=== PATIENT | male | born 1950 | race Caucasian/White ===

== ENCOUNTER → 2021-01-21 | Outpatient (CLI) | payer MEDICARE, OTHER ==
[~2021-01-21] MED LIST: DIATRIZOATE MEGL/DIATRIZOA SOD 30 ML BTL PO ONE
== END ==
LOC: CT 17:17
PROVIDERS: ATTEND Family Medicine
DX: R10.814 Left lower quadrant abdominal tenderness (principal)
CPT/HCPCS: 74176

== ENCOUNTER 2023-03-15 12:03 | Inpatient (IN) | payer MEDICARE, OTHER ==
[~2023-03-15] VITALS: Ht 177.8 cm; Wt 63.5 kg
[2023-03-15] MEDS ORDERED: ALBUTEROL/IPRATROPIUM 3 ML NEB NEB ONE (13:00)
[2023-03-15 13:23] LABS: BASOPHILS % 0.2 % (0.0-1.0); EOSINOPHILS % 0.2 % (0.0-6.0); HEMATOCRIT 30.9 % (38.2-49.6); LYMPHOCYTES # (AUTO) 0.4 (1.0-3.2); MEAN CORPUSCULAR HEMOGLOBIN 33.8 pg (28-32); MEAN CORPUSCULAR HGB CONC 32.4 g/dL (31-35); MEAN CORPUSCULAR VOLUME 104.4 fL (81-99); MONOCYTES # (AUTO) 0.2 (0.2-0.8); MONOCYTES % 4.6 % (4.4-11.3); NEUTROPHILS # (AUTO) 4.1 (2.1-6.9); NEUTROPHILS % 86.4 % (38.7-80.0); PLATELET COUNT 139 x10e3/uL (140-360); RED BLOOD COUNT 2.96 x10e6/uL (4.3-5.7); RED CELL DISTRIBUTION WIDTH 14.9 % (11.7-14.4)
[2023-03-15 13:46] LABS: ALBUMIN 3.1 g/dL (3.5-5.0); ALBUMIN/GLOBULIN RATIO 1.1 (0.8-2.0); ANION GAP 14.2 mmol/L (8-16); CALCIUM 8.9 mg/dL (8.4-10.2); CREATININE, SERUM 2.54 mg/dL (0.72-1.25); POTASSIUM 4.2 mmol/L (3.5-5.1)
[2023-03-15 13:52] LABS: CREATINE KINASE MB 2.9 ng/mL (0-5.0)
[2023-03-15] MEDS: SODIUM CHLORIDE 0.9% 1000ML 1,000 ML IV SCH ×2 (15:43→23:33)
[2023-03-15 15:47] LABS: CLARITY,URINE CLEAR (CLEAR); COLOR,URINE YELLOW (YELLOW)
[2023-03-15 15:48] LABS: KETONES,URINE NEGATIVE (NEGATIVE); LEUKOCYTE ESTERASE ,URINE NEGATIVE (NEGATIVE); NITRITE,URINE NEGATIVE (NEGATIVE); PROTEIN,URINE DIPSTICK >=300 (NEGATIVE); URINE UROBILINOGEN 0.2 mg/dL (0.2 - 1)
[2023-03-15 15:52] LABS: BACTERIA,URINE FEW /HPF; EPITHELIAL CELLS,URINE FEW /LPF; RBC,URINE 0-5 /HPF (0-5); WBC,URINE (MAN) 0-5 /HPF (0-5)
[2023-03-15] MEDS ORDERED: DILTIAZEM HCL ER 120 MG CAP PO SCH (17:00)
[2023-03-15] MEDS ORDERED: SIMETHICONE 80 MG CHEW PO PRN (20:45)
[2023-03-15] MEDS ORDERED: ACETAMINOPHEN 325 MG TAB PO PRN (20:45)
[2023-03-15] MEDS ORDERED: DOCUSATE SODIUM 100 MG CAP PO PRN (20:45)
[2023-03-15] MEDS: GUAIFENESIN/DEXTROMETHORPHAN LIQD 5 ML UDC NG PRN (21:32)
[2023-03-15] MEDS: BENZONATATE 100 MG CAP PO PRN (21:33)
[2023-03-15] MEDS: LORATADINE 10 MG TAB PO SCH (21:33)
[2023-03-15] MEDS: ZINC SULFATE 50 MG CAP PO SCH (21:33)
[2023-03-15] MEDS: FAMOTIDINE 20 MG TAB PO SCH (21:33)
[2023-03-15 22:29] VITALS: BP 180/75
[2023-03-15] MEDS ORDERED: TRAZODONE HCL50 MG PO (23:02)
[2023-03-15] MEDS ORDERED: AMOX TR-K CLV1 EAC1 PO (23:02)
[2023-03-15] MEDS ORDERED: ZOLPIDEM TARTRAT5 MG PO (23:02)
[2023-03-15] MEDS ORDERED: BENZONATATE200 MG PO (23:02)
[2023-03-15] MEDS ORDERED: LEVOFLOXACIN500 MG PO (23:02)
[2023-03-15] MEDS ORDERED: ALPRAZOLAM0.25 MG PO (23:02)
[2023-03-15] MEDS: ALBUTEROL/IPRATROPIUM 3 ML NEB NEB PRN (23:10)
[2023-03-15] MEDS: Morphine 2mg Syringe 2 MG/ML SYR IV PRN (23:30)
[2023-03-15] MEDS: ONDANSETRON HCL INJ 2MG/ML 2ML 2 MG/ML VIAL IV PRN (23:30)
[2023-03-16] VITALS (10 sets, daily range): BP systolic 110–180; BP diastolic 59–76
[2023-03-16 00:25] LABS: CREATINE KINASE MB 3.5 ng/mL (0-5.0)
[2023-03-16] MEDS: GUAIFENESIN/DEXTROMETHORPHAN LIQD 5 ML UDC NG PRN ×2 (03:12→17:59)
[2023-03-16] MEDS: ONDANSETRON HCL INJ 2MG/ML 2ML 2 MG/ML VIAL IV PRN (03:12)
[2023-03-16] MEDS: Morphine 2mg Syringe 2 MG/ML SYR IV PRN (03:13)
[2023-03-16] MEDS: BENZONATATE 100 MG CAP PO PRN ×2 (03:13→17:58)
[2023-03-16] MEDS: SODIUM CHLORIDE 0.9% 1000ML 1,000 ML IV SCH ×2 (05:48→15:47)
[2023-03-16 05:52] LABS: HEMATOCRIT 28.3 % (38.2-49.6); LYMPHOCYTES # (AUTO) 0.6 (1.0-3.2); LYMPHOCYTES % 17.6 % (18.0-39.1); MEAN CORPUSCULAR HGB CONC 31.8 g/dL (31-35); MEAN CORPUSCULAR VOLUME 106.8 fL (81-99); MONOCYTES # (AUTO) 0.2 (0.2-0.8); MONOCYTES % 6.1 % (4.4-11.3); NEUTROPHILS # (AUTO) 2.5 (2.1-6.9); NEUTROPHILS % 75.7 % (38.7-80.0); PLATELET COUNT 124 x10e3/uL (140-360); RED BLOOD COUNT 2.65 x10e6/uL (4.3-5.7); RED CELL DISTRIBUTION WIDTH 14.7 % (11.7-14.4)
[2023-03-16 06:29] LABS: ANION GAP 10.2 mmol/L (8-16); CALCIUM 8.3 mg/dL (8.4-10.2); CREATININE, SERUM 2.37 mg/dL (0.72-1.25); POTASSIUM 5.2 mmol/L (3.5-5.1)
[2023-03-16] MEDS: ALBUTEROL/IPRATROPIUM 3 ML NEB NEB PRN ×3 (06:30→20:00)
[2023-03-16 06:42] LABS: MAGNESIUM 1.9 MG/DL (1.3-2.1)
[2023-03-16] MEDS ORDERED: DEXTROSE 50% SYRINGE 50 ML IV PRN (06:45)
[2023-03-16 06:54] LABS: CREATINE KINASE MB 2.4 ng/mL (0-5.0)
[2023-03-16] MEDS: INSULIN REGULAR, HUMAN 100 UNIT/1 ML SQ SCH ×4 (06:57→21:00)
[2023-03-16 07:11] LABS: CHOL/HDL RATIO 6.3 (3.9-4.7)
[2023-03-16] MEDS: FAMOTIDINE 20 MG TAB PO SCH (09:04)
[2023-03-16] MEDS: LORATADINE 10 MG TAB PO SCH (09:04)
[2023-03-16] MEDS: ZINC SULFATE 50 MG CAP PO SCH (09:04)
[2023-03-16] MEDS: CHOLECALCIFEROL 400 UNIT TAB PO SCH (09:04)
[2023-03-16] MEDS: ASCORBIC ACID 500 MG TAB PO SCH ×2 (09:05→17:47)
[2023-03-16] MEDS: METOPROLOL TARTRATE 25 MG TAB PO SCH ×2 (12:38→17:47)
[2023-03-16] MEDS: INSULIN GLARGINE 100 UNITS/ML VIAL SQ SCH (12:49)
[2023-03-16] MEDS: IPRATROPIUM BROMIDE 0.02% 2.5 ML NEB NEB SCH (13:37)
[2023-03-16 15:17] LABS: CREATINE KINASE MB 2.4 ng/mL (0-5.0)
[2023-03-16] MEDS: DEXAMETHASONE SOD PHOS INJ 4 MG/ML SDV IV SCH (20:45)
[2023-03-16] MEDS ORDERED: ASCORBIC ACID 500 MG TAB PO SCH (21:00)
[2023-03-16] MEDS ORDERED: SODIUM CHLORIDE 0.9% 250ML 250 ML ONE (22:06)
[2023-03-17] VITALS (8 sets, daily range): BP systolic 136–169; BP diastolic 64–79
[2023-03-17] MEDS: SODIUM CHLORIDE 0.9% 1000ML 1,000 ML IV SCH ×3 (05:47→16:46)
[2023-03-17 06:23] LABS: BASOPHILS % 0.2 % (0.0-1.0); EOSINOPHILS # (AUTO) 0.1 (0.0-0.4); EOSINOPHILS % 2.5 % (0.0-6.0); HEMOGLOBIN 9.2 g/dL (14.0-18.0); LYMPHOCYTES # (AUTO) 0.7 (1.0-3.2); LYMPHOCYTES % 13.9 % (18.0-39.1); MEAN CORPUSCULAR HEMOGLOBIN 33.5 pg (28-32); MEAN CORPUSCULAR HGB CONC 31.7 g/dL (31-35); MEAN CORPUSCULAR VOLUME 105.5 fL (81-99); MONOCYTES # (AUTO) 0.3 (0.2-0.8); MONOCYTES % 6.1 % (4.4-11.3); NEUTROPHILS # (AUTO) 3.9 (2.1-6.9); NEUTROPHILS % 76.7 % (38.7-80.0); PLATELET COUNT 124 x10e3/uL (140-360); RED BLOOD COUNT 2.75 x10e6/uL (4.3-5.7); RED CELL DISTRIBUTION WIDTH 15.1 % (11.7-14.4)
[2023-03-17 06:33] LABS: CALCIUM 8.4 mg/dL (8.4-10.2); CREATININE, SERUM 2.24 mg/dL (0.72-1.25); MAGNESIUM 1.8 MG/DL (1.3-2.1); PHOSPHORUS 3.3 MG/DL (2.3-4.7)
[2023-03-17] MEDS: BUDESONIDE 0.5MG/2 ML NEB INH SCH ×2 (07:55→19:42)
[2023-03-17] MEDS: IPRATROPIUM BROMIDE 0.02% 2.5 ML NEB NEB SCH ×3 (07:55→19:25)
[2023-03-17] MEDS: LEVALBUTEROL HCL SOLN NEBU 1.25 MG/3 ML NEB INH SCH ×3 (07:55→19:25)
[2023-03-17] MEDS ORDERED: ZINC SULFATE 50 MG CAP PO SCH (09:00)
[2023-03-17] MEDS: LORATADINE 10 MG TAB PO SCH (09:20)
[2023-03-17] MEDS: DEXAMETHASONE SOD PHOS INJ 4 MG/ML SDV IV SCH (09:20)
[2023-03-17] MEDS: FAMOTIDINE 20 MG TAB PO SCH (09:21)
[2023-03-17] MEDS: CHOLECALCIFEROL 400 UNIT TAB PO SCH (09:21)
[2023-03-17] MEDS: METOPROLOL TARTRATE 25 MG TAB PO SCH ×2 (09:21→16:47)
[2023-03-17] MEDS: INSULIN GLARGINE 100 UNITS/ML VIAL SQ SCH (09:25)
[2023-03-17] MEDS: INSULIN REGULAR, HUMAN 100 UNIT/1 ML SQ SCH ×4 (09:27→21:07)
[2023-03-17] MEDS: ZINC SULFATE 50 MG CAP PO SCH (09:33)
[2023-03-17] MEDS: ASCORBIC ACID 500 MG TAB PO SCH ×2 (09:33→16:46)
[2023-03-17] MEDS: BENZONATATE 100 MG CAP PO PRN (09:33)
[2023-03-17] MEDS: CLOPIDOGREL BISULFATE 75 MG TAB PO SCH (11:42)
[2023-03-17] MEDS: HEPARIN SOD (PORCINE) 5,000 UNIT/ML VIAL SC SCH ×2 (11:43→21:00)
[2023-03-17] MEDS: BALSAM PERU/CASTOR OIL 60 GM OINT...G. TP SCH (11:44)
[2023-03-17] MEDS: TAMSULOSIN HCL 0.4 MG CAP PO SCH (21:03)
[2023-03-17] MEDS: CLONIDINE HCL 0.1 MG TAB PO SCH (21:03)
[2023-03-17] MEDS: ATORVASTATIN 40 MG TAB PO SCH (21:04)
[2023-03-17] MEDS ORDERED: SODIUM CHLORIDE 0.9% 250ML 0 ML ONE (23:21)
[2023-03-18] VITALS (8 sets, daily range): BP systolic 127–168; BP diastolic 55–90
[2023-03-18] MEDS: LEVALBUTEROL HCL SOLN NEBU 1.25 MG/3 ML NEB INH SCH ×4 (01:10→19:40)
[2023-03-18] MEDS: SODIUM CHLORIDE 0.9% 1000ML 1,000 ML IV SCH ×2 (05:33→12:45)
[2023-03-18 06:25] LABS: EOSINOPHILS % 0.3 % (0.0-6.0); HEMATOCRIT 27.7 % (38.2-49.6); HEMOGLOBIN 8.9 g/dL (14.0-18.0); LYMPHOCYTES # (AUTO) 0.3 (1.0-3.2); LYMPHOCYTES % 9.2 % (18.0-39.1); MEAN CORPUSCULAR HEMOGLOBIN 33.5 pg (28-32); MEAN CORPUSCULAR HGB CONC 32.1 g/dL (31-35); MEAN CORPUSCULAR VOLUME 104.1 fL (81-99); MONOCYTES # (AUTO) 0.2 (0.2-0.8); MONOCYTES % 5.2 % (4.4-11.3); NEUTROPHILS # (AUTO) 2.6 (2.1-6.9); NEUTROPHILS % 84.6 % (38.7-80.0); PLATELET COUNT 101 x10e3/uL (140-360); RED BLOOD COUNT 2.66 x10e6/uL (4.3-5.7); RED CELL DISTRIBUTION WIDTH 14.6 % (11.7-14.4)
[2023-03-18 06:52] LABS: ANION GAP 10.7 mmol/L (8-16); CALCIUM 8.2 mg/dL (8.4-10.2); CREATININE, SERUM 2.6 mg/dL (0.72-1.25); POTASSIUM 4.7 mmol/L (3.5-5.1)
[2023-03-18] MEDS: IPRATROPIUM BROMIDE 0.02% 2.5 ML NEB NEB SCH ×2 (07:42→13:37)
[2023-03-18] MEDS: BUDESONIDE 0.5MG/2 ML NEB INH SCH ×2 (07:42→19:40)
[2023-03-18] MEDS: BALSAM PERU/CASTOR OIL 60 GM OINT...G. TP SCH (09:08)
[2023-03-18] MEDS: ASCORBIC ACID 500 MG TAB PO SCH ×2 (09:09→17:13)
[2023-03-18] MEDS: CLOPIDOGREL BISULFATE 75 MG TAB PO SCH (09:09)
[2023-03-18] MEDS: ZINC SULFATE 50 MG CAP PO SCH (09:09)
[2023-03-18] MEDS: CHOLECALCIFEROL 400 UNIT TAB PO SCH (09:09)
[2023-03-18] MEDS: FAMOTIDINE 20 MG TAB PO SCH (09:09)
[2023-03-18] MEDS: LORATADINE 10 MG TAB PO SCH (09:09)
[2023-03-18] MEDS: DEXAMETHASONE SOD PHOS INJ 4 MG/ML SDV IV SCH (09:10)
[2023-03-18] MEDS: HEPARIN SOD (PORCINE) 5,000 UNIT/ML VIAL SC SCH (09:11)
[2023-03-18] MEDS: METOPROLOL TARTRATE 25 MG TAB PO SCH ×2 (09:13→17:13)
[2023-03-18] MEDS: INSULIN GLARGINE 100 UNITS/ML VIAL SQ SCH (09:24)
[2023-03-18] MEDS: INSULIN REGULAR, HUMAN 100 UNIT/1 ML SQ SCH ×4 (09:26→21:36)
[2023-03-18] MEDS: TAMSULOSIN HCL 0.4 MG CAP PO SCH (21:20)
[2023-03-18] MEDS: ATORVASTATIN 40 MG TAB PO SCH (21:20)
[2023-03-18] MEDS: CLONIDINE HCL 0.1 MG TAB PO SCH (21:21)
[2023-03-19] VITALS (7 sets, daily range): BP systolic 115–153; BP diastolic 66–78
[2023-03-19] MEDS: LEVALBUTEROL HCL SOLN NEBU 1.25 MG/3 ML NEB INH SCH ×4 (00:05→19:45)
[2023-03-19] MEDS: IPRATROPIUM BROMIDE 0.02% 2.5 ML NEB NEB SCH ×4 (00:05→19:45)
[2023-03-19] MEDS: BUDESONIDE 0.5MG/2 ML NEB INH SCH ×2 (06:30→19:45)
[2023-03-19] MEDS: ZINC SULFATE 50 MG CAP PO SCH (09:17)
[2023-03-19] MEDS: DEXAMETHASONE SOD PHOS INJ 4 MG/ML SDV IV SCH (09:17)
[2023-03-19] MEDS: METOPROLOL TARTRATE 25 MG TAB PO SCH ×2 (09:18→17:12)
[2023-03-19] MEDS: CHOLECALCIFEROL 400 UNIT TAB PO SCH (09:18)
[2023-03-19] MEDS: LORATADINE 10 MG TAB PO SCH (09:18)
[2023-03-19] MEDS: CLOPIDOGREL BISULFATE 75 MG TAB PO SCH (09:18)
[2023-03-19] MEDS: FAMOTIDINE 20 MG TAB PO SCH (09:18)
[2023-03-19] MEDS: ASCORBIC ACID 500 MG TAB PO SCH ×2 (09:18→17:12)
[2023-03-19] MEDS ORDERED: INSULIN GLARGINE 100 UNITS/ML VIAL SQ SCH (09:45)
[2023-03-19] MEDS: INSULIN REGULAR, HUMAN 100 UNIT/1 ML SQ SCH ×4 (10:29→22:01)
[2023-03-19] MEDS ORDERED: ONDANSETRON HCL 4 MG ORAL DISINTEGRATING TAB PO PRN (11:45)
[2023-03-19] MEDS: CLONIDINE HCL 0.1 MG TAB PO SCH ×2 (12:15→17:11)
[2023-03-19] MEDS: BALSAM PERU/CASTOR OIL 60 GM OINT...G. TP SCH (12:33)
[2023-03-19] MEDS: INSULIN LISPRO 100 UNIT/1 ML 3ML VIAL SQ SCH ×2 (17:16→22:00)
[2023-03-19] MEDS ORDERED: HEPARIN SOD (PORCINE) 5,000 UNIT/ML VIAL SC SCH (21:00)
[2023-03-19] MEDS: TAMSULOSIN HCL 0.4 MG CAP PO SCH (21:45)
[2023-03-19] MEDS: AZITHROMYCIN 250 MG TAB PO SCH (21:45)
[2023-03-19] MEDS: ATORVASTATIN 40 MG TAB PO SCH (21:45)
[2023-03-20] VITALS (8 sets, daily range): BP systolic 114–147; BP diastolic 61–87
[2023-03-20] MEDS: LEVALBUTEROL HCL SOLN NEBU 1.25 MG/3 ML NEB INH SCH ×4 (00:40→19:45)
[2023-03-20] MEDS ORDERED: SODIUM CHLORIDE 0.45% 1,000 ML IV ONE (05:15)
[2023-03-20 05:45] LABS: BASOPHILS % 0.2 % (0.0-1.0); EOSINOPHILS % 0.8 % (0.0-6.0); HEMATOCRIT 28.8 % (38.2-49.6); HEMOGLOBIN 9.4 g/dL (14.0-18.0); LYMPHOCYTES # (AUTO) 0.9 (1.0-3.2); LYMPHOCYTES % 17.7 % (18.0-39.1); MEAN CORPUSCULAR HEMOGLOBIN 33.5 pg (28-32); MEAN CORPUSCULAR HGB CONC 32.6 g/dL (31-35); MEAN CORPUSCULAR VOLUME 102.5 fL (81-99); MONOCYTES # (AUTO) 0.5 (0.2-0.8); MONOCYTES % 9.5 % (4.4-11.3); NEUTROPHILS # (AUTO) 3.4 (2.1-6.9); NEUTROPHILS % 70.2 % (38.7-80.0); RED BLOOD COUNT 2.81 x10e6/uL (4.3-5.7); RED CELL DISTRIBUTION WIDTH 14.6 % (11.7-14.4)
[2023-03-20] MEDS: SODIUM BICARBONATE 650 MG TAB PO SCH ×3 (05:56→16:53)
[2023-03-20 06:08] LABS: PLATELET COUNT 97 x10e3/uL (140-360)
[2023-03-20 06:11] LABS: ANION GAP 11.7 mmol/L (8-16); CALCIUM 8.4 mg/dL (8.4-10.2); CREATININE, SERUM 2.48 mg/dL (0.72-1.25); POTASSIUM 3.7 mmol/L (3.5-5.1)
[2023-03-20] MEDS: BUDESONIDE 0.5MG/2 ML NEB INH SCH ×2 (07:30→19:45)
[2023-03-20] MEDS: IPRATROPIUM BROMIDE 0.02% 2.5 ML NEB NEB SCH ×3 (07:35→23:00)
[2023-03-20] MEDS: ZINC SULFATE 50 MG CAP PO SCH (08:54)
[2023-03-20] MEDS: FAMOTIDINE 20 MG TAB PO SCH (08:54)
[2023-03-20] MEDS: ASCORBIC ACID 500 MG TAB PO SCH ×2 (08:54→16:53)
[2023-03-20] MEDS: CLOPIDOGREL BISULFATE 75 MG TAB PO SCH (08:54)
[2023-03-20] MEDS: CHOLECALCIFEROL 400 UNIT TAB PO SCH (08:54)
[2023-03-20] MEDS: PREDNISONE 10 MG TAB PO SCH ×2 (08:54→16:53)
[2023-03-20] MEDS: METOPROLOL TARTRATE 25 MG TAB PO SCH ×2 (08:55→16:53)
[2023-03-20] MEDS: CLONIDINE HCL 0.1 MG TAB PO SCH ×2 (08:55→16:52)
[2023-03-20] MEDS: LORATADINE 10 MG TAB PO SCH (08:55)
[2023-03-20] MEDS: BALSAM PERU/CASTOR OIL 60 GM OINT...G. TP SCH (08:59)
[2023-03-20] MEDS: INSULIN REGULAR, HUMAN 100 UNIT/1 ML SQ SCH ×4 (09:11→21:22)
[2023-03-20] MEDS: INSULIN GLARGINE 100 UNITS/ML VIAL SQ SCH (09:11)
[2023-03-20] MEDS: INSULIN LISPRO 100 UNIT/1 ML 3ML VIAL SQ SCH ×4 (09:13→21:22)
[2023-03-20] MEDS: TAMSULOSIN HCL 0.4 MG CAP PO SCH (21:11)
[2023-03-20] MEDS: AZITHROMYCIN 250 MG TAB PO SCH (21:12)
[2023-03-20] MEDS: ATORVASTATIN 40 MG TAB PO SCH (21:12)
[2023-03-21] VITALS: BP 141/73
[2023-03-21] MEDS: LEVALBUTEROL HCL SOLN NEBU 1.25 MG/3 ML NEB INH SCH ×2 (00:43→07:20)
[2023-03-21 04:00] VITALS: BP 146/69
[2023-03-21] MEDS: BUDESONIDE 0.5MG/2 ML NEB INH SCH (07:20)
[2023-03-21] MEDS: IPRATROPIUM BROMIDE 0.02% 2.5 ML NEB NEB SCH (07:20)
[2023-03-21] MEDS: INSULIN REGULAR, HUMAN 100 UNIT/1 ML SQ SCH (08:19)
[2023-03-21] MEDS: INSULIN LISPRO 100 UNIT/1 ML 3ML VIAL SQ SCH (08:19)
[2023-03-21] MEDS: INSULIN GLARGINE 100 UNITS/ML VIAL SQ SCH (08:19)
[2023-03-21] MEDS: METOPROLOL TARTRATE 25 MG TAB PO SCH (08:21)
[2023-03-21] MEDS: FAMOTIDINE 20 MG TAB PO SCH (08:21)
[2023-03-21] MEDS: ZINC SULFATE 50 MG CAP PO SCH (08:21)
[2023-03-21] MEDS: CLOPIDOGREL BISULFATE 75 MG TAB PO SCH (08:21)
[2023-03-21] MEDS: CLONIDINE HCL 0.1 MG TAB PO SCH (08:21)
[2023-03-21] MEDS: LORATADINE 10 MG TAB PO SCH (08:22)
[2023-03-21] MEDS: PREDNISONE 10 MG TAB PO SCH (08:22)
[2023-03-21] MEDS: CHOLECALCIFEROL 400 UNIT TAB PO SCH (08:22)
[2023-03-21] MEDS: ASCORBIC ACID 500 MG TAB PO SCH (08:22)
[2023-03-21] MEDS: SODIUM BICARBONATE 650 MG TAB PO SCH (08:22)
[2023-03-21] MEDS: BALSAM PERU/CASTOR OIL 60 GM OINT...G. TP SCH (08:30)
[2023-03-21] MEDS ORDERED: Insulin Lispro SQ (08:37)
[2023-03-21] MEDS ORDERED: FAMOTIDINE20 MG PO (08:37)
[2023-03-21] MEDS ORDERED: PLAVIX75 MG PO (08:37)
[2023-03-21] MEDS ORDERED: SODIUM BICARBO650 MG PO (08:37)
[2023-03-21] MEDS ORDERED: DOXYCYCLINE HY100 MG PO (08:37)
[2023-03-21] MEDS ORDERED: PREDNISONE10 MG PO (08:37)
[2023-03-21] MEDS ORDERED: FLOMAX0.4 MG PO (08:37)
[2023-03-21] MEDS ORDERED: ASCORBIC ACID500 MG PO (08:37)
[2023-03-21] MEDS ORDERED: Insulin Glargine SQ (08:37)
[2023-03-21] MEDS ORDERED: LORATADINE10 MG PO (08:37)
[2023-03-21] MEDS ORDERED: CLONIDINE HCL0.1 MG PO (08:37)
[2023-03-21] MEDS ORDERED: LOPRESSOR25 MG PO (08:37)
[2023-03-21 08:47] VITALS: BP 156/61
[2023-03-21 09:01] VITALS: BP 156/61
== END 2023-03-21 11:21 | disposition home or self-care (01) | DRG 177 ==
LOC: ER 12:11 → INTOOBSV 14:48 → ERHOLD 14:48 → MED/SURG3 21:01 → OBSVTOIN 03-17 17:19
PROVIDERS: ADMIT Internal Medicine; ATTEND Internal Medicine
PROC: 8E0ZXY6 Isolation (ICD-10-PCS; principal; 2023-03-17)
PROC: 3E0333Z Introduction of Anti-inflammatory into Peripheral Vein, Percutaneous Approach (ICD-10-PCS; 2023-03-18)
DX: U07.1 COVID-19 (principal); J12.82 Pneumonia due to coronavirus disease 2019; N17.0 Acute kidney failure with tubular necrosis; J44.0 Chronic obstructive pulmonary disease with (acute) lower respiratory infection; I16.1 Hypertensive emergency; D61.818 Other pancytopenia; I10 Essential (primary) hypertension; E11.9 Type 2 diabetes mellitus without complications; F17.210 Nicotine dependence, cigarettes, uncomplicated; J20.8 Acute bronchitis due to other specified organisms; E87.5 Hyperkalemia; J98.2 Interstitial emphysema; R91.1 Solitary pulmonary nodule; D35.02 Benign neoplasm of left adrenal gland; Z99.81 Dependence on supplemental oxygen; Z79.4 Long term (current) use of insulin
CPT/HCPCS: 0223U; 36415; 71045; 71250; 76770; 80048; 80053; 80061; 81001; 82550; 82553; 82948; 83036; 83735; 83880; 84100; 84484; 85025; 87070; 87205; 93005; 94640; 94799; 96361; 99252; 99284; G0378; J1100; J1644; J1815; J2270; J2405; J2543; J7030; J7050; J7512

== ENCOUNTER 2023-04-10 19:35 | Emergency (ER) | payer MEDICARE ==
[~2023-04-10] VITALS: Ht 330.2 cm; Wt 63.5 kg
[~2023-04-10 19:35] MED LIST changes: +ALPRAZOLAM0.25 MG PO; +AMOX TR-K CLV1 EAC1 PO; +ASCORBIC ACID500 MG PO; +BENZONATATE200 MG PO; +CLONIDINE HCL0.1 MG PO; -DIATRIZOATE MEGL/DIATRIZOA SOD 30 ML BTL PO ONE; +DOXYCYCLINE HY100 MG PO; +FAMOTIDINE20 MG PO; +FLOMAX0.4 MG PO; +Insulin Glargine SQ; +Insulin Lispro SQ; +LEVOFLOXACIN500 MG PO; +LOPRESSOR25 MG PO; +LORATADINE10 MG PO; +PLAVIX75 MG PO; +PREDNISONE10 MG PO; +SODIUM BICARBO650 MG PO; +TRAZODONE HCL50 MG PO; +ZOLPIDEM TARTRAT5 MG PO
[2023-04-10] MEDS ORDERED: SODIUM CHLORIDE 0.9% 1000ML 1,000 ML IV STA (22:41)
[2023-04-11 01:36] LABS: BASOPHILS % 0.3 % (0.0-1.0); EOSINOPHILS # (AUTO) 0.3 (0.0-0.4); EOSINOPHILS % 3.6 % (0.0-6.0); HEMATOCRIT 32.2 % (38.2-49.6); HEMOGLOBIN 10.2 g/dL (14.0-18.0); LYMPHOCYTES # (AUTO) 1.1 (1.0-3.2); LYMPHOCYTES % 14.7 % (18.0-39.1); MEAN CORPUSCULAR HEMOGLOBIN 33.8 pg (28-32); MEAN CORPUSCULAR HGB CONC 31.7 g/dL (31-35); MEAN CORPUSCULAR VOLUME 106.6 fL (81-99); MONOCYTES # (AUTO) 0.4 (0.2-0.8); NEUTROPHILS # (AUTO) 5.4 (2.1-6.9); NEUTROPHILS % 75.6 % (38.7-80.0); PLATELET COUNT 215 x10e3/uL (140-360); RED BLOOD COUNT 3.02 x10e6/uL (4.3-5.7); RED CELL DISTRIBUTION WIDTH 15.8 % (11.7-14.4)
[2023-04-11 01:48] LABS: ALBUMIN 3.2 g/dL (3.5-5.0); ALBUMIN/GLOBULIN RATIO 0.9 (0.8-2.0); ANION GAP 18.7 mmol/L (8-16); CREATININE, SERUM 3.38 mg/dL (0.72-1.25); POTASSIUM 4.7 mmol/L (3.5-5.1)
[2023-04-11] MEDS ORDERED: SODIUM CHLORIDE 0.9% 1000ML 1,000 ML IV STA ×2 (01:50→02:09)
[2023-04-11 01:55] LABS: CREATINE KINASE MB 5.5 ng/mL (0-5.0)
[2023-04-11 04:11] VITALS: O2SAT 99
[2023-04-11 04:29] LABS: CLARITY,URINE CLEAR (CLEAR); COLOR,URINE YELLOW (YELLOW); KETONES,URINE NEGATIVE (NEGATIVE); LEUKOCYTE ESTERASE ,URINE NEGATIVE (NEGATIVE); NITRITE,URINE NEGATIVE (NEGATIVE); PROTEIN,URINE DIPSTICK 1+ (NEGATIVE); URINE UROBILINOGEN 0.2 mg/dL (0.2 - 1)
[2023-04-11 04:41] LABS: BACTERIA,URINE FEW /HPF; EPITHELIAL CELLS,URINE FEW /LPF; RBC,URINE 0-5 /HPF (0-5); WBC,URINE (MAN) 0-5 /HPF (0-5)
== END 2023-04-11 04:45 | disposition home or self-care (01) ==
LOC: ER 20:31
DX: R10.9 Unspecified abdominal pain (principal); R20.0 Anesthesia of skin; R53.1 Weakness; R94.31 Abnormal electrocardiogram [ECG] [EKG]
CPT/HCPCS: 36415; 71046; 74176; 80053; 81001; 82550; 82553; 82948; 83690; 84484; 85025; 93005; 99284; J7030